=== PATIENT | male | born 1990 | race Two or more races ===

== ENCOUNTER → 2016-10-28 | Outpatient (CLI) | payer BC, MEDICAID ==
--- NOTE | 2016-10-28 15:17 | REP ---
Right ankle series: Four views. History: Injury to the right ankle. Findings: There is anterolateral soft tissue swelling. Ankle mortise is intact. There is an old accessory ossicle versus old ununited fracture at the tip of the malleolus. No acute fracture is seen. Impression: No acute fracture noted. Signed by Oh Ordonez MD 10/28/2016 04:25 P
== END ==
LOC: M LRY 14:22
PROVIDERS: ATTEND Physician Assistant
DX: S99.911A Unspecified injury of right ankle, initial encounter (principal); X58.XXXA Exposure to other specified factors, initial encounter; Y92.89 Other specified places as the place of occurrence of the external cause; Y93.89 Activity, other specified; Y99.8 Other external cause status

== ENCOUNTER → 2017-07-03 | Outpatient (REF) | payer OTHER, MEDICAID ==
[2017-07-03 20:42] LABS: CHLAMYDIA DNA AMPLIFICATION NEGATIVE (NEGATIVE); GC DNA AMPLIFICATION NEGATIVE (NEGATIVE)
== END ==
LOC: M SFHCLERA 12:15
DX: R30.0 Dysuria (principal)
CPT/HCPCS: 87086

== ENCOUNTER → 2018-02-12 | Outpatient (REF) | payer MEDICAID | LOC: M SFHCLERA 15:32 | DX: Z20.818 Contact with and (suspected) exposure to other bacterial communicable diseases (principal) ==

== ENCOUNTER → 2019-02-14 | Outpatient (REF) | payer MEDICAID, OTHER | LOC: M SFHCLERA 19:56 | PROVIDERS: ATTEND Nurse Practitioner Family | DX: J00 Acute nasopharyngitis [common cold] (principal) ==